=== PATIENT | male | born 1940 | race Caucasian/White ===

== ENCOUNTER 2019-02-24 21:06 | Emergency (ER) | payer MEDICARE, OTHER ==
[~2019-02-24] VITALS: Ht 157.5 cm; Wt 75.3 kg
--- NOTE | 2019-02-24 21:25 | NUR ---
PT BIBSELF C/O "LUMP IN THROAT. CANT SLEEP. DRY COUGH" -SOB -N/V -DIZZY. AOX4. NAD NOTED. RESP EVEN AND UNLABORED. PT ON MONITOR IN BED 09 WITH FAMILY AT BEDSIDE. WILL CONTINUE TO MONITOR.
--- NOTE | 2019-02-24 21:40 | NUR ---
RT CALLED FOR BREATHING TREATMENT
[2019-02-24 21:41] VITALS: BP 136/68
[2019-02-24] MEDS ORDERED: ALBUTEROL FS 2.5 MG/3 ML VIAL.NEB ONE (21:46)
[2019-02-24] MEDS ORDERED: IPRATROPIUM NEB FS 0.5 MG/2.5 ML AMPUL.NEB ONE (21:46)
[2019-02-24] MEDS ORDERED: IPRATROPIUM NEB FS 0.5 MG/2.5 ML AMPUL.NEB NEB ONE (22:00)
[2019-02-24] MEDS ORDERED: ALBUTEROL FS 2.5 MG/3 ML VIAL.NEB NEB ONE (22:00)
[2019-02-24] MEDS ORDERED: predniSONE 20 MG TABLET ONE (22:36)
[2019-02-24] MEDS ORDERED: predniSONE 20 MG TABLET PO ONE (23:00)
--- NOTE | 2019-02-24 23:00 | NUR ---
Patient discharged to home in stable condition. Written and verbal after care instructions given. Patient verbalizes understanding of instruction. PT AMBULATORY WITH STEADY GAIT ACCOMPANIED BY FAMILY.
== END 2019-02-24 23:39 | disposition home or self-care (01) ==
LOC: ER 21:19
DX: J45.909 Unspecified asthma, uncomplicated (principal); I10 Essential (primary) hypertension; E11.9 Type 2 diabetes mellitus without complications
CPT/HCPCS: 71045; 94644; 99285; J7512